=== PATIENT | male | born 1970 | race Caucasian/White ===

== ENCOUNTER 2017-09-04 11:51 | Emergency (ER) | payer OTHER, SELFPAY ==
[2017-09-04] MEDS ORDERED: Ketorolac Tromethamine 60 MG/2 ML VIAL ONE (13:09)
--- NOTE | 2017-09-04 13:26 | RAD ---
RIGHT KNEE 4 VIEWS: Date: 09/04/17 HISTORY: Pain. Difficulty bearing weight. Patient recently stepped in a hole. FINDINGS: There is evidence of previous ACL repair. There appear to be possible loose body fragments in the lat eral compartment. There is chondrocalcinosis of the lateral compartment. No definite fracture. Nonspe cific suprapatellar effusion. IMPRESSION: Presumed chronic changes without evidence of fracture. If there is concern for ligamentous or menisca l injury, consider MRI. POS: [facility]
== END 2017-09-04 14:00 | disposition home or self-care (01) ==
LOC: ERS 11:51
DX: S83.91XA Sprain of unspecified site of right knee, initial encounter (principal); I10 Essential (primary) hypertension; M10.9 Gout, unspecified; F17.210 Nicotine dependence, cigarettes, uncomplicated; Z79.899 Other long term (current) drug therapy; Z71.6 Tobacco abuse counseling; W17.2XXA Fall into hole, initial encounter
CPT/HCPCS: 96372; 99406; J1885

== ENCOUNTER 2017-09-08 21:42 | Emergency (ER) | payer SELFPAY ==
[2017-09-08] MEDS ORDERED: Famotidine 20 MG TAB ONE (22:21)
[2017-09-08] MEDS ORDERED: diphenhydrAMINE 50 MG CAP ONE (22:21)
== END 2017-09-08 23:12 | disposition home or self-care (01) ==
LOC: ERS 21:42
DX: T63.2X1A Toxic effect of venom of scorpion, accidental (unintentional), initial encounter (principal); I10 Essential (primary) hypertension; M10.9 Gout, unspecified; F17.210 Nicotine dependence, cigarettes, uncomplicated
CPT/HCPCS: 99406